=== PATIENT | male | born 1945 | race Caucasian/White ===

== ENCOUNTER 2024-04-10 07:15 | Inpatient (IN) | payer SELFPAY ==
[~2024-04-10] VITALS: Ht 172.7 cm; Wt 91.6 kg
[2024-04-10 08:04] LABS: CHLORIDE 104 mEq/L (98-107); POTASSIUM 4.5 mEq/L (3.5-5.1); SODIUM 138 mEq/L (136-145)
[2024-04-10 08:06] LABS: CALCIUM 9.6 mg/dL (8.7-10.4); CARBON DIOXIDE 25 mEq/L (21-32)
[2024-04-10 08:11] LABS: BASOPHILS % 0.8 % (0.0-2.0); EOSINOPHILS % 3.2 % (0.0-5.0); GLUCOSE 254 mg/dL (70-105); HEMATOCRIT. 42.3 % (42.0-52.0); HEMOGLOBIN. 14.3 g/dL (14.0-18.0); LYMPHOCYTES % 24.2 % (20.0-50.0); MEAN CORPUSCULAR HEMOGLOBIN 31.8 pg (28.0-32.0); MEAN CORPUSCULAR HGB CONC 33.9 g/dL (31.0-37.0); MEAN CORPUSCULAR VOLUME 93.6 fL (80.0-94.0); MEAN PLATELET VOLUME 8.6 fl (7.4-10.4); MONOCYTES % 3.9 % (2.0-8.0); NEUTROPHILS % 67.9 % (40.0-76.0); PLATELET 223 x1000/uL (130-400); RED BLOOD CELL COUNT 4.52 mill/uL (4.7-6.1); RED CELL DISTRIBUTION WIDTH 14.4 % (11.6-14.6); UREA NITROGEN BLOOD 14 mg/dL (9-23); WHITE BLOOD COUNT 7.5 x1000/uL (4.5-11.0)
[2024-04-10 08:12] LABS: TROPONIN I HIGH SENSITIVITY 13 ng/L (3.0-53)
[2024-04-10 08:36] LABS: CREATININE 1.2 mg/dL (0.6-1.3)
[2024-04-10] MEDS ORDERED: DEXTROSE 50% WATER 50ML SYRINGE IV PRN (10:15)
[2024-04-10] MEDS ORDERED: ZOLPIDEM TARTRATE 5MG TABLET PO PRN (10:15)
[2024-04-10] MEDS ORDERED: MAGNESIUM/ALUMINUM HYDROXIDE/SIMETHICONE 30ML UDC PO PRN (10:15)
[2024-04-10] MEDS ORDERED: DIPHENHYDRAMINE 50MG/ML VIAL IV PRN (10:15)
[2024-04-10] MEDS ORDERED: ACETAMINOPHEN 325MG TABLET PO PRN ×2 (10:15)
[2024-04-10] MEDS ORDERED: ONDANSETRON HCL 4MG/2ML INJ IV PRN (10:15)
[2024-04-10 10:56] LABS: TROPONIN I HIGH SENSITIVITY 104 ng/L (3.0-53)
[2024-04-10] MEDS: ENOXAPARIN 40MG/0.4ML SYR SUBCUT SCH (12:00)
[2024-04-10] MEDS: INSULIN GLARGINE 100 UNITS/ML SUBCUT SCH (12:13)
[2024-04-10] MEDS: INSULIN LISPRO 100 UNITS/ML SUBCUT SCH (12:52)
[2024-04-10 13:30] VITALS: BP 139/67; PULSE 75; RESP 17; TEMP 37.05852; O2SAT 98
[2024-04-10 13:36] VITALS: BP 139/67; PULSE 75; RESP 17; TEMP 37.0852
[2024-04-10 13:54] LABS: TROPONIN I HIGH SENSITIVITY 290 ng/L (3.0-53)
[2024-04-10] MEDS ORDERED: SOLI5TAB MT (14:06)
[2024-04-10] MEDS ORDERED: METF-415 PO (14:06)
[2024-04-10] MEDS ORDERED: DUTA1CPM4 MT (14:06)
[2024-04-10] MEDS ORDERED: LOSA50TA41 MT (14:06)
[2024-04-10] MEDS ORDERED: CYCL5TAB3 MT (14:06)
[2024-04-10] MEDS ORDERED: PROP40TA7 PO (14:06)
[2024-04-10 16:00] VITALS: BP 116/66; PULSE 74; RESP 17; TEMP 36.9474; O2SAT 99
[2024-04-10 16:40] LABS: TROPONIN I HIGH SENSITIVITY 471 ng/L (3.0-53)
[2024-04-10] MEDS: BLOOD SUGAR DIAGNOSTIC STRIP TEST SCH (16:50)
[2024-04-10] MEDS: SODIUM CHLORIDE 0.9% 3ML FLUSH IVF SCH (18:17)
[2024-04-10 20:24] VITALS: BP 132/73; PULSE 75; RESP 16; TEMP 36.44736; O2SAT 96
[2024-04-10] MEDS: METOPROLOL TARTRATE 25MG TABLET PO SCH (20:35)
[2024-04-10] MEDS: ATORVASTATIN CALCIUM 20MG TABLET PO SCH (20:35)
[2024-04-11] VITALS (7 sets, daily range): BP systolic 105–137; BP diastolic 63–76; PULSE 60–68; RESP 12–19; TEMP 36.61404–37.00296; O2SAT 95–100
[2024-04-11 01:58] LABS: TROPONIN I HIGH SENSITIVITY 846 ng/L (3.0-53)
[2024-04-11] MEDS ORDERED: CLOPIDOGREL 75MG TABLET PO SCH (09:00)
[2024-04-11] MEDS: ASPIRIN 81MG EC TABLET PO SCH (09:00)
[2024-04-11 16:05] LABS: BASOPHILS % 1.2 % (0.0-2.0); EOSINOPHILS % 5.6 % (0.0-5.0); HEMOGLOBIN. 13.7 g/dL (14.0-18.0); LYMPHOCYTES % 33.7 % (20.0-50.0); MEAN CORPUSCULAR HEMOGLOBIN 31.7 pg (28.0-32.0); MEAN CORPUSCULAR HGB CONC 34.1 g/dL (31.0-37.0); MEAN CORPUSCULAR VOLUME 92.9 fL (80.0-94.0); MEAN PLATELET VOLUME 8.4 fl (7.4-10.4); MONOCYTES % 6.2 % (2.0-8.0); NEUTROPHILS % 53.3 % (40.0-76.0); PLATELET 203 x1000/uL (130-400); RED BLOOD CELL COUNT 4.31 mill/uL (4.7-6.1); RED CELL DISTRIBUTION WIDTH 14.5 % (11.6-14.6); WHITE BLOOD COUNT 6.5 x1000/uL (4.5-11.0)
[2024-04-11 16:16] LABS: PARTIAL THROMBOPLASTIN TIME < 21.0 sec (23.4-31.0)
[2024-04-11] MEDS ORDERED: HEPARIN 5000 UNITS/ML VIAL IV SCH (16:30)
[2024-04-11] MEDS ORDERED: HEPARIN 5000 UNITS/ML VIAL IV PRN (16:37)
[2024-04-11] MEDS: HEPARIN 5000 UNITS/ML VIAL IV PRN (17:08)
[2024-04-11] MEDS: HEPARIN 25,000 UNITS PREMIX 250 ML IV PRN (17:59)
[2024-04-11 20:12] LABS: CLARITY URINE CLEAR (CLEAR); COLOR URINE YELLOW (YELLOW); GLUCOSE URINE NEGATIVE (NEGATIVE); KETONES URINE NEGATIVE (NEGATIVE); LEUKOCYTE ESTERASE URINE NEGATIVE (NEGATIVE); NITRITE URINE NEGATIVE (NEGATIVE); OCCULT BLOOD URINE NEGATIVE (NEGATIVE); PH URINE 6.5 (4.5-8.0); PROTEIN URINE NEGATIVE (NEGATIVE); SPECIFIC GRAVITY URINE 1.022 (1.005-1.030)
[2024-04-12 04:21] VITALS: BP 118/52; PULSE 60; RESP 15; TEMP 36.44736; O2SAT 96
[2024-04-12 08:00] VITALS: BP 130/70; PULSE 60; RESP 15; TEMP 36.61404; O2SAT 99
[2024-04-12 11:31] LABS: CHLORIDE 106 mEq/L (98-107); POTASSIUM 3.8 mEq/L (3.5-5.1); SODIUM 140 mEq/L (136-145)
[2024-04-12 11:32] LABS: CALCIUM 9.2 mg/dL (8.7-10.4); CARBON DIOXIDE 24 mEq/L (21-32)
[2024-04-12 11:37] LABS: CREATININE 0.9 mg/dL (0.6-1.3); GLUCOSE 198 mg/dL (70-105); UREA NITROGEN BLOOD 15 mg/dL (9-23)
[2024-04-12 12:00] VITALS: BP 122/70; PULSE 64; RESP 17; TEMP 36.83628; O2SAT 97
[2024-04-12 12:38] LABS: TROPONIN I HIGH SENSITIVITY 243 ng/L (3.0-53)
[2024-04-12] MEDS: ENOXAPARIN 100MG/ML SYR SUBCUT SCH (15:49)
[2024-04-12 16:00] VITALS: BP 121/71; PULSE 67; RESP 20; TEMP 36.89184; O2SAT 97
[2024-04-12 20:00] VITALS: BP 141/89; PULSE 64; RESP 20; TEMP 36.9474; O2SAT 98
[2024-04-13] VITALS: BP 113/64; PULSE 58; RESP 20; TEMP 36.6696; O2SAT 99
[2024-04-13 04:00] VITALS: BP 139/65; PULSE 59; RESP 16; TEMP 36.50292; O2SAT 98
[2024-04-13 08:00] VITALS: BP 125/80; PULSE 52; RESP 14; TEMP 36.6696; O2SAT 98
[2024-04-13 12:00] VITALS: BP 128/73; PULSE 49; RESP 14; TEMP 36.9474; O2SAT 98
[2024-04-13] MEDS: NITROGLYCERIN SPRAY/4.9GM CAN TL ONE (12:52)
[2024-04-13] MEDS ORDERED: IOHEXOL-350 100 ML BOTTLE ONE (13:34)
[2024-04-13 16:00] VITALS: BP 136/81; PULSE 57; RESP 16; TEMP 36.6696; TEMP 36.66960; O2SAT 97
[2024-04-13 16:17] VITALS: BP 128/73; PULSE 49; TEMP 98.5; O2SAT 97
== END 2024-04-13 18:19 | disposition home or self-care (01) | DRG 201 ==
LOC: ER 07:21 → 3WST 09:37 → EDBEDREQTM 09:39 → EDBEDREQ 09:39
PROVIDERS: ADMIT Internal Medicine; ATTEND Internal Medicine
DX: I47.19 Other supraventricular tachycardia (principal); I21.A1 Myocardial infarction type 2; I25.10 Atherosclerotic heart disease of native coronary artery without angina pectoris; E11.9 Type 2 diabetes mellitus without complications; I10 Essential (primary) hypertension; I25.2 Old myocardial infarction
CPT/HCPCS: 36415; 71045; 75571; 80048; 81003; 82962; 83036; 83880; 84484; 85025; 85379; 93005; 93306; 93970; 99291; J1644; J1650; J1815; Q9967